=== PATIENT | male | born 1945 | race Caucasian/White ===

== ENCOUNTER 2018-05-26 10:01 | Day surgery (SDC) | payer OTHER ==
[2018-05-26 10:41] LABS: ADD MAN DIFF? NO
[2018-05-26 10:46] LABS: WHITE BLOOD COUNT 6.8 10^3/ul (4.8-10.8)
[2018-05-26 10:46] LABS: BASOPHILS % 0.6 % (0.0-2.0); EOSINOPHILS # 0.1 10^3/ul (0.0-0.5); EOSINOPHILS % 0.7 % (0.0-7.0); HEMATOCRIT 48.6 % (42.0-52.0); HEMOGLOBIN 15.9 g/dl (14.0-18.0); LYMPHOCYTES # 1.9 10^3/ul (0.8-2.9); LYMPHOCYTES % 28.3 % (15.0-51.0); MEAN CORPUSCULAR HEMOGLOBIN 29.9 pg (29.0-33.0); MEAN CORPUSCULAR HGB CONC 32.7 g/dl (32.0-37.0); MEAN CORPUSCULAR VOLUME 91.4 fl (82.0-101.0); MEAN PLATELET VOLUME 10.2 fl (7.4-10.4); MONOCYTE # 0.5 10^3/ul (0.3-0.9); MONOCYTES % 7.1 % (0.0-11.0); NEUTROPHIL # 4.3 10^3/ul (1.6-7.5); NEUTROPHILS % 62.9 % (39.0-77.0); PLATELET COUNT 187 10^3/UL (140-415); RED BLOOD COUNT 5.32 10^6/ul (4.70-6.10); RED CELL DISTRIBUTION WIDTH 12.8 % (11.5-14.5)
[2018-05-26 11:06] LABS: PROTIME 12.3 Sec (11.9-14.9)
[2018-05-26 11:07] LABS: PARTIAL THROMBOPLASTIN TIME 34.8 Sec (23.0-35.0)
[2018-05-26 11:21] LABS: ANION GAP 12 (5-13); BLOOD UREA NITROGEN 17 mg/dl (7-20); CALCIUM 9.4 mg/dl (8.4-10.2); CARBON DIOXIDE 29 mmol/L (21-31); CHLORIDE 99 mmol/L (97-110); CREATININE 0.72 mg/dl (0.61-1.24); GLUCOSE 201 mg/dl (70-220); POTASSIUM 4.2 mmol/L (3.5-5.1); SODIUM 140 mmol/L (135-144)
[2018-05-26] MEDS ORDERED: NITROGLYCERIN (IC) 100 MCG/ML INJ (14:00)
[2018-05-26] MEDS ORDERED: HEPARIN 1000 UNITS/ML 10 ML INJ (14:00)
[2018-05-26] MEDS ORDERED: LIDOCAINE 1% (MDV) 20 ML INJ (14:00)
[2018-05-26] MEDS ORDERED: IODIXANOL LOCM 100 ML BTL (14:00)
[2018-05-26] MEDS ORDERED: VERAPAMIL 5 MG INJ (14:00)
[2018-05-26] MEDS ORDERED: FENTAnyl 50 MCG/ML VIAL (14:08)
[2018-05-26] MEDS ORDERED: MIDAZOLAM 1 MG/ML 2 ML INJ (14:08)
[2018-05-26] MEDS: SOD CHLORIDE 0.9% 1,000 ML IV (15:28)
== END 2018-05-26 18:44 | disposition home or self-care (01) ==
LOC: SDS 10:01
DX: I25.10 Atherosclerotic heart disease of native coronary artery without angina pectoris (principal); E78.5 Hyperlipidemia, unspecified; E11.9 Type 2 diabetes mellitus without complications; I10 Essential (primary) hypertension; I42.9 Cardiomyopathy, unspecified
CPT/HCPCS: 80048; 82962; 85025; 85610; 85730; 93005; 93458